=== PATIENT | female | born 1995 | race Caucasian/White ===

== ENCOUNTER 2019-01-06 15:01 | Outpatient (CLI) | payer BC, MEDICAID ==
[2019-01-06 15:48] LABS: APPEARANCE,URINE CLEAR; BILIRUBIN,URINE NEGATIVE (NEGATIVE); COLOR,URINE STRAW; GLUCOSE, URINE NEGATIVE (NEGATIVE); KETONES,URINE NEGATIVE (NEGATIVE); LEUKOCYTE ESTERASE,URINE SMALL (NEGATIVE); NITRITE,URINE NEGATIVE (NEGATIVE); PROTEIN,URINE NEGATIVE (NEGATIVE); URINE SPECIFIC GRAVITY 1.002; UROBILINOGEN,URINE NEGATIVE mg/dL (<2.0)
[2019-01-06 16:06] LABS: URINE AMPHETAMINES SCREEN NEGATIVE; URINE BARBITURATES SCREEN NEGATIVE; URINE BENZODIAZEPINES SCREEN NEGATIVE; URINE COCAINE SCREEN NEGATIVE; URINE MARIJUANA (THC) SCREEN NEGATIVE; URINE METHADONE SCREEN NEGATIVE; URINE PHENCYCLIDINE SCREEN NEGATIVE
[2019-01-06 16:22] LABS: HEMATOCRIT 35.4 % (36.0-47.0); HEMOGLOBIN 11.6 g/dL (12.0-15.5); MEAN CORPUSCULAR HEMOGLOBIN 28.3 pg (27.0-33.4); MEAN CORPUSCULAR HGB CONC 32.8 g/dL (32.0-36.0); MEAN CORPUSCULAR VOLUME 86 fl (80-97); PLATELET COUNT 157 10^3/uL (150-450); RED CELL DISTRIBUTION WIDTH 14.7 % (11.5-14.0); WHITE BLOOD COUNT 10.5 10^3/uL (4.0-10.5)
[2019-01-06 16:41] LABS: ABSOLUTE MONOCYTES # (MANUAL) 0.4 10^3/uL (0.1-1.4); BAND NEUTROPHILS % (MANUAL) 4 % (3-5); BASOPHILS % (MANUAL) 0 % (0-2); EOSINOPHILS % (MANUAL) 3 % (0-6); LYMPHOCYTES % (MANUAL) 19 % (13-45); MONOCYTES % (MANUAL) 4 % (3-13); SEGMENTED NEUTROPHILS % (MAN) 70 % (42-78); TOTAL CELLS COUNTED 100
[2019-01-06 16:43] LABS: PLATELET COMMENT ADEQUATE; TOXIC VACUOLATION PRESENT
== END 2019-01-06 17:33 | disposition home or self-care (01) ==
LOC: LC 15:01
PROVIDERS: ATTEND Obstetrics & Gynecology
PROC: 4A1HXCZ Monitoring of Products of Conception, Cardiac Rate, External Approach (ICD-10-PCS; principal; 2019-01-06)
DX: O26.893 Other specified pregnancy related conditions, third trimester (principal); R42 Dizziness and giddiness; Z3A.32 32 weeks gestation of pregnancy
CPT/HCPCS: 36415; 59025; 80307; 81001; 82962; 85025

== ENCOUNTER 2019-02-26 15:58 | Inpatient (IN) | payer BC, MEDICAID ==
[2019-02-26] MEDS ORDERED: OXYTOCIN/NORMAL SALINE 20 UNIT/1,000 ML RTUINJ ONE (16:41)
[2019-02-26] MEDS ORDERED: PENICILLIN G-K 5 MILLION UNIT VIAL ONE (16:41)
[2019-02-26] MEDS ORDERED: MISOPROSTOL 0.2 MG TABLET ONE (16:41)
[2019-02-26] MEDS ORDERED: LIDOCAINE 1% INJ-PF (10 MG/ML) 30 ML SDV ONE (16:41)
[2019-02-26 16:48] LABS: APPEARANCE,URINE SLIGHTLY-CLOUDY; BILIRUBIN,URINE NEGATIVE (NEGATIVE); COLOR,URINE YELLOW; GLUCOSE, URINE NEGATIVE (NEGATIVE); KETONES,URINE NEGATIVE (NEGATIVE); LEUKOCYTE ESTERASE,URINE SMALL (NEGATIVE); NITRITE,URINE NEGATIVE (NEGATIVE); PROTEIN,URINE NEGATIVE (NEGATIVE); URINE SPECIFIC GRAVITY 1.012; UROBILINOGEN,URINE NEGATIVE mg/dL (<2.0)
--- NOTE | 2019-02-26 16:57 | Admission Physical ---
Datetime Report Generated by CPN: 02/26/2019 16:56 CURRENT ADMISSION Chief Complaint: Uterine Contractions Indication for Induction: Not Applicable Admit Impression : Term, Intrauterine ; Active Labor Admit Plan: Admit to Unit; Initiate Labor Protocol ALLERGIES Medication Allergies: No Medication Allergies: No Known Allergies (01/06/2019) Latex: No Latex Allergies Food Allergies: no Environmental Allergies: no OBSTETRICAL HISTORY EDC: 03/03/2019 00:00 : 2 Para: 1 Term: 1 : 0 SAB: 0 IAB: 0 Ectopic: 0 Livin Cesareans: 0 VBACs: 0 Multiple Births: 0 SEE RECORDS Alcohol: No Marijuana : No Cocaine: No Other Illicit Drugs: No Cigarettes: Never Smoker. 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
[2019-02-26 17:13] LABS: ABSOLUTE BASOPHILS # (AUTO) 0.1 10^3/uL (0.0-0.2); ABSOLUTE LYMPHOCYTES (AUTO) 1.7 10^3/uL (0.5-4.7); ABSOLUTE NEUT (AUTO) 8.4 10^3/uL (1.7-8.2); BASOPHILS % (AUTO) 0.6 % (0-2); EOSINOPHILS % (AUTO) 0.4 % (0-6); HEMOGLOBIN 13.4 g/dL (12.0-15.5); LYMPHOCYTES % (AUTO) 15.3 % (13-45); MEAN CORPUSCULAR HEMOGLOBIN 28.3 pg (27.0-33.4); MEAN CORPUSCULAR HGB CONC 32.8 g/dL (32.0-36.0); MEAN CORPUSCULAR VOLUME 87 fl (80-97); MONOCYTES % (AUTO) 8.6 % (3-13); PLATELET COUNT 171 10^3/uL (150-450); RED BLOOD COUNT 4.74 10^6/uL (3.72-5.28); RED CELL DISTRIBUTION WIDTH 15.6 % (11.5-14.0); SEGMENTED NEUTROPHILS % (AUTO) 75.1 % (42-78); TOTAL CELLS COUNTED % (AUTO) 100 %; WHITE BLOOD COUNT 11.1 10^3/uL (4.0-10.5)
[2019-02-26] MEDS ORDERED: FENTANYL/BUPIVACAINE/NS/PF 0 MCG/0 ML RTUINJ EPI ONE (17:39)
[2019-02-26] MEDS ORDERED: EPHEDRINE SULFATE INJ 50 MG/1 ML AMPULE ONE (17:39)
[2019-02-26] MEDS ORDERED: BUPIVACAINE HCL 0.25 % INJ/PF (2.5 MG/1 ML) 30 ML VIAL ONE (17:39)
[2019-02-26 17:40] LABS: URINE AMPHETAMINES SCREEN NEGATIVE; URINE BARBITURATES SCREEN NEGATIVE; URINE BENZODIAZEPINES SCREEN NEGATIVE; URINE COCAINE SCREEN NEGATIVE; URINE MARIJUANA (THC) SCREEN NEGATIVE; URINE METHADONE SCREEN NEGATIVE; URINE PHENCYCLIDINE SCREEN NEGATIVE
[2019-02-26] MEDS ORDERED: DIPHENHYDRAMINE HCL 25 MG CAPSULE PO PRN (18:26)
[2019-02-26] MEDS ORDERED: DIPH/PERTUSS(ACELL)/TETANUS VAC/PF 0.5 ML SYR (>=10YO) IM PRN (18:26)
[2019-02-26] MEDS ORDERED: ZOLPIDEM TARTRATE 5 MG TABLET PO PRN (18:26)
[2019-02-26] MEDS ORDERED: ACETAMINOPHEN 650 MG SUPP.RECT PR PRN (18:26)
[2019-02-26] MEDS ORDERED: PROMETHAZINE HCL 25 MG TABLET PO PRN (18:26)
[2019-02-26] MEDS ORDERED: MAGNESIUM HYDROXIDE SUSP 30 ML UDCUP PO PRN (18:26)
[2019-02-26] MEDS ORDERED: PROMETHAZINE HCL 25 MG SUPP.RECT PR PRN (18:26)
[2019-02-26] MEDS ORDERED: BENZOCAINE/MENTHOL AEROSOL SPRAY 56 ML TOP PRN (18:26)
[2019-02-26] MEDS ORDERED: GLYCERIN/WITCH HAZEL LEAF 1 EACH MED..WIPE TP PRN (18:26)
[2019-02-26] MEDS ORDERED: MEASLES,MUMPS&RUBELLA VACC/PF 0.5 ML VIAL SUBCUT PRN (18:26)
[2019-02-26] MEDS ORDERED: PSEUDOEPHEDRINE HCL 30 MG TABLET PO PRN (18:26)
[2019-02-26] MEDS ORDERED: OXYTOCIN/NORMAL SALINE 20 UNIT/1,000 ML RTUINJ IV PRN (18:26)
[2019-02-26] MEDS ORDERED: ACETAMINOPHEN WITH CODEINE #3 TABLET PO PRN (18:26)
[2019-02-26] MEDS ORDERED: PROMETHAZINE HCL INJ 25 MG/1 ML VIAL IV PRN (18:26)
[2019-02-26] MEDS ORDERED: DIBUCAINE 1% OINTMENT 56 GM TP PRN (18:26)
[2019-02-26] MEDS ORDERED: NA PHOS,M-B/NA PHOS,DI-BA (ADULT) 133 ML ENEMA PR PRN (18:26)
[2019-02-26] MEDS ORDERED: IBUPROFEN 800 MG TABLET ONE (19:28)
[2019-02-26] MEDS: FAMOTIDINE 20 MG TABLET PO SCH (22:15)
[2019-02-27] MEDS: IBUPROFEN 800 MG TABLET PO SCH ×4 (00:10→21:52)
[2019-02-27 06:47] LABS: HEMATOCRIT 34.8 % (36.0-47.0); HEMOGLOBIN 11.5 g/dL (12.0-15.5); MEAN CORPUSCULAR HEMOGLOBIN 28.8 pg (27.0-33.4); MEAN CORPUSCULAR VOLUME 87 fl (80-97); PLATELET COUNT 147 10^3/uL (150-450); RED CELL DISTRIBUTION WIDTH 15.5 % (11.5-14.0); WHITE BLOOD COUNT 14.6 10^3/uL (4.0-10.5)
[2019-02-27] MEDS: PRENATAL VITAMIN W DHA CAPSULE PO SCH (09:05)
[2019-02-27] MEDS: SENNOSIDES/DOCUSATE 8.6-50 MG 1 EACH TABLET PO SCH (09:05)
[2019-02-27] MEDS: FAMOTIDINE 20 MG TABLET PO SCH ×2 (09:05→21:52)
[2019-02-27] MEDS: FERROUS SULFATE 325 MG TABLET PO SCH ×2 (09:06→17:11)
[2019-02-27] MEDS: DOCUSATE SODIUM 100 MG CAPSULE PO SCH ×2 (09:06→17:11)
--- NOTE | 2019-02-27 09:58 | PDOC PROGRESS REPORT ---
Subjective-OB Progress Note for:: 02/27/19 Subjective: Doing well, no c/o, bottle feeding, ambulating Physical Exam (OB) Vital Signs: Temp Pulse Resp BP Pulse Ox 98.0 F 102 H 18 107/69 99 02/27/19 07:15 02/27/19 07:15 02/26/19 20:55 02/27/19 07:15 02/27/19 07:15 Intake & Output 02/26/19 02/27/19 02/28/19 06:59 06:59 06:59 Weight 93.8 kg - PIH/Pre-Eclampsia DTR's: 1 + Clonus: Negative Headache: Absent Epigastric Pain: No Visual Changes: No - Lochia Lochia Amount: Scant < 10 ml Lochia Color: Rubra/Red - Abdomen Description: Soft, Round Hernia Present: No Fundal Description: Firm, Midline Fundal Height: u/u - u/2 Objective-Diagnostic Laboratory: 02/27/19 06:30 02/26/19 02/26/19 02/26/19 16:05 17:00 17:00 WBC 11.1 H RBC 4.74 Hgb 13.4 Hct 41.0 MCV 87 MCH 28.3 MCHC 32.8 RDW 15.6 H Plt Count 171 Seg Neutrophils % 75.1 Urine Color YELLOW Urine Appearance SLIGHTLY-CLOUDY Urine pH 8.0 Ur Specific [place] 1.012 Urine Protein NEGATIVE Urine Glucose (UA) NEGATIVE Urine Ketones NEGATIVE Urine Blood NEGATIVE Urine Nitrite NEGATIVE Ur Leukocyte Esterase SMALL H Blood Type O POSITIVE Antibody Screen NEGATIVE 02/27/19 06:30 WBC 14.6 H RBC 4.00 Hgb 11.5 L Hct 34.8 L MCV 87 MCH 28.8 MCHC 33.0 RDW 15.5 H Plt Count 147 L Seg Neutrophils % Urine Color Urine Appearance Urine pH Ur Specific [place] Urine Protein Urine Glucose (UA) Urine Ketones Urine Blood Urine Nitrite Ur Leukocyte Esterase Blood Type Antibody Screen Assessment and Plan(PN) - Assessment and Plan (1) Normal vaginal delivery Is this a current diagnosis for this admission?: Yes - Time Spent with Patient Time with patient: Less than 15 minutes Medications reviewed and adjusted accordingly: Yes - Disposition Anticipated Discharge: Home Within: within 24 hours
[2019-02-28] MEDS: IBUPROFEN 800 MG TABLET PO SCH ×2 (06:15→13:55)
--- NOTE | 2019-02-28 08:43 | PDOC PROGRESS REPORT ---
Subjective-OB Progress Note for:: 02/28/19 Subjective: Doing well, no c/o, ready to go home, bottle feeding, scant bleeding, ambulating Physical Exam (OB) Vital Signs: Temp Pulse Resp BP Pulse Ox 98.1 F 98 17 108/65 96 02/28/19 07:58 02/28/19 07:58 02/28/19 07:58 02/27/19 19:30 02/28/19 07:58 Intake & Output 02/27/19 02/28/19 03/01/19 06:59 06:59 06:59 Weight 93.8 kg - PIH/Pre-Eclampsia DTR's: 1 + Clonus: Negative Headache: Absent Epigastric Pain: No Visual Changes: No - Lochia Lochia Amount: Small 10-25 ml Lochia Color: Rubra/Red - Abdomen Description: Soft Hernia Present: No Fundal Description: Firm, Midline Fundal Height: u/u - u/2 Objective-Diagnostic Laboratory: 02/27/19 06:30 Assessment and Plan(PN) - Assessment and Plan (1) Normal vaginal delivery Is this a current diagnosis for this admission?: Yes - Time Spent with Patient Time with patient: Less than 15 minutes Medications reviewed and adjusted accordingly: Yes - Disposition Anticipated Discharge: Home Within: within 24 hours
[2019-02-28 08:44] VITALS: BP 115/60
--- NOTE | 2019-02-28 08:47 | PDOC DISCHARGE SUMMARY ---
Impression - Admit/DC Date/PCP Admission Date/Primary Care Provider: 02/26/19 16:41 CHELSEA BERRIOS MD Discharge Date: 02/28/19 - Discharge Diagnosis (1) Normal vaginal delivery Is this a current diagnosis for this admission?: Yes - Additional Information Resuscitation Status: Full Code Discharge Diet: As Tolerated, Regular Discharge Activity: Activity As Tolerated, Pelvic Rest Referrals: CHELSEA BERRIOS MD [Primary Care Provider] - (RTC 4 weeks) Home Medications: [id number]/Iron Fum/Folic/Docusate [ 19 Tablet] 1 each PO DAILY 01/06/19 HPI Gestational Age: 39.2 Reason(s) for Admission: Onset of Labor, Group B Strep Positive Procedures: Ultrasound Intrapartum Procedure(s): Spontaneous Vaginal Delivery - girl, wt 6-15, 11/14 Hospital Course Hospital Course: routine Results Laboratory Results: WBC 14.6 10^3/uL (4.0-10.5) H 02/27/19 06:30 RBC 4.00 10^6/uL (3.72-5.28) 02/27/19 06:30 Hgb 11.5 g/dL (12.0-15.5) L 02/27/19 06:30 Hct 34.8 % (36.0-47.0) L 02/27/19 06:30 MCV 87 fl (80-97) 02/27/19 06:30 MCH 28.8 pg (27.0-33.4) 02/27/19 06:30 MCHC 33.0 g/dL (32.0-36.0) 02/27/19 06:30 RDW 15.5 % (11.5-14.0) H 02/27/19 06:30 Plt Count 147 10^3/uL (150-450) L 02/27/19 06:30 Lymph % (Auto) 15.3 % (13-45) 02/26/19 17:00 [place] % (Auto) 8.6 % (3-13) 02/26/19 17:00 Eos % (Auto) 0.4 % (0-6) 02/26/19 17:00 Baso % (Auto) 0.6 % (0-2) 02/26/19 17:00 Absolute Neuts (auto) 8.4 10^3/uL (1.7-8.2) H 02/26/19 17:00 Absolute Lymphs (auto) 1.7 10^3/uL (0.5-4.7) 02/26/19 17:00 Absolute Monos (auto) 1.0 10^3/uL (0.1-1.4) 02/26/19 17:00 Absolute Eos (auto) 0.0 10^3/uL (0.0-0.6) 02/26/19 17:00 Absolute Basos (auto) 0.1 10^3/uL (0.0-0.2) 02/26/19 17:00 Seg Neutrophils % 75.1 % (42-78) 02/26/19 17:00 Urine Color YELLOW 02/26/19 16:05 Urine Appearance SLIGHTLY-CLOUDY 02/26/19 16:05 Urine pH 8.0 (5.0-9.0) 02/26/19 16:05 Ur Specific [place] 1.012 02/26/19 16:05 Urine Protein NEGATIVE mg/dL (NEGATIVE) 02/26/19 16:05 Urine Glucose (UA) NEGATIVE mg/dL (NEGATIVE) 02/26/19 16:05 Urine Ketones NEGATIVE mg/dL (NEGATIVE) 02/26/19 16:05 Urine Blood NEGATIVE (NEGATIVE) 02/26/19 16:05 Urine Nitrite NEGATIVE (NEGATIVE) 02/26/19 16:05 Urine Bilirubin NEGATIVE (NEGATIVE) 02/26/19 16:05 Urine Urobilinogen NEGATIVE mg/dL (<2.0) 02/26/19 16:05 Ur Leukocyte Esterase SMALL (NEGATIVE) H 02/26/19 16:05 Urine Ascorbic Acid NEGATIVE (NEGATIVE) 02/26/19 16:05 Urine Opiates Screen NEGATIVE 02/26/19 16:05 Urine Methadone Screen NEGATIVE 02/26/19 16:05 Ur Barbiturates Screen NEGATIVE 02/26/19 16:05 Ur Phencyclidine Scrn NEGATIVE 02/26/19 16:05 Ur Amphetamines Screen NEGATIVE 02/26/19 16:05 U Benzodiazepines Scrn NEGATIVE 02/26/19 16:05 Urine Cocaine Screen NEGATIVE 02/26/19 16:05 U Marijuana (THC) Screen NEGATIVE 02/26/19 16:05 RPR NONREACTIVE (NONREACTIVE) 02/26/19 17:00 Blood Type O POSITIVE 02/26/19 17:00 Antibody Screen NEGATIVE 02/26/19 17:00 Plan Health Concerns: routine Plan of Treatment: home with baby with no complications Goals: routine, baby d/c with mom Time Spent: Less than 30 Minutes
[2019-02-28] MEDS: FAMOTIDINE 20 MG TABLET PO SCH (10:03)
[2019-02-28] MEDS: PRENATAL VITAMIN W DHA CAPSULE PO SCH (10:03)
[2019-02-28] MEDS: SENNOSIDES/DOCUSATE 8.6-50 MG 1 EACH TABLET PO SCH (10:03)
[2019-02-28] MEDS: DOCUSATE SODIUM 100 MG CAPSULE PO SCH ×2 (10:03→17:31)
[2019-02-28] MEDS: FERROUS SULFATE 325 MG TABLET PO SCH ×2 (10:03→17:31)
--- NOTE | 2019-03-03 13:03 | Delivery Summary ---
Del Sum A-C Datetime Report Generated by CPN: 03/03/2019 13:03 DELIVERY PERSONNEL DELIVERY PERSONNEL: [id number] Delivery Doctor:: Kevin Ceja MD Labor and Delivery Nurse:: Letitia Velez RNmanager configuration Nurse:: Kia lEaine RN Nursery Nurse:: Yessi Sheets RN Nursery Nurse:: Carleen Leon RN Data Warehouse Consultant/MANAGER COLLEGE: Dayana Eliane CNA II Data Warehouse Consultant/HUBER: Dayana Elaine CNA II Additional Personnel: : Sunita Dumont RNC MATERNAL INFORMATION Delivery Anesthesia: None Medications After Delivery: Pitocin Bolus-Please Comment Meds After Delivery Comment: Pitocin 20 units in 1000 ml nss open for bolus after delivery Estimated Blood Loss (ml): 200 Delivery QBL: 200 Maternal Complications: Precipitous Labor (<3hrs) LABOR SUMMARY EDC: 03/03/2019 00:00 No. Babies in Womb: 1 Attempted: No Labor Anesthesia: None LABOR INFORMATION Reason for Induction: Not Applicable Onset of Labor: 02/26/2019 15:30 Complete Dilatation: 02/26/2019 18:02 Oxytocin: N/A Group B Beta Strep: Positive Antibiotics # of Doses: 1 Antibiotics Time of Last Dose: 1651 Name of Antibiotic Given: Penicillin Steroids Given: None Reason Steroids Not Administered: Not Applicable MEMBRANES Membranes Rupture Method: Spontaneous Rupture of Membranes: 02/26/2019 18:02 Length of Rupture (hr): 0.25 Amniotic Fluid Color: Clear Amniotic Fluid Amount: Large Amniotic Fluid Odor: Normal STAGES OF LABOR Stage 1 hr: 2 Stage 1 min: 32 Stage 2 hr: 0 Stage 2 min: 15 Stage 3 hr: 0 Stage 3 min: 3 Total Time in Labor hr: 2 Total Time in Labor min: 50 VAGINAL DELIVERY Episiotomy: None Laceration #1: None Laceration Extension #1: N/A Laceration Repair: Not Applicable Sponge Count Correct: N/A Sharps Count Correct: N/A CSECTION DELIVERY Primary Indication: N/A Secondary Indication: N/A CSection Incidence: N/A Labor: N/A Elective: N/A CSection Incision: N/A BABY A INFORMATION Delivery Date/Time: 02/26/2019 18:17 Method of Delivery: Vaginal Method of Delivery: Vaginal Born in Route : No : N/A Forceps: N/A Vacuum Extraction: N/A Shoulder Dystocia : No PRESENTATION/POSITION BABY A Presentation: Cephalic Cephalic Presentation: Vertex Vertex Position: Right Occipital Anterior Breech Presentation: N/A PLACENTA INFORMATION BABY A Placenta Delivery Time : 02/26/2019 18:20 Placenta Method of Delivery: Spontaneous Placenta Method of Delivery: Spontaneous Placenta Status: Delivered Placenta Status: Delivered SCORES BABY A Heart Rate 1 min: >100 bpm Resp Effort 1 min: Good Cry Reflex Irritability 1 min: Cough or Sneeze or Pulls Away Muscle Tone 1 min: Active Motion Color 1 min: Blue/Pale Resuscitation Effort 1 min: Tactile Stimulation SCORE 1 MIN: 8 Heart Rate 5 min: >100 bpm Resp Effort 5 min: Good Cry Reflex Irritability 5 min: Cough or Sneeze or Pulls Away Muscle Tone 5 min: Active Motion Color 5 min: Body [place], Extremities Blue Resuscitation Effort 5 min: N/A SCORE 5 MIN: 9 Resuscitation Effort 10 min: N/A INFORMATION BABY A Gestational Age at Delivery: 39.2 Gestational Status: Full Term- 39- 40.6 Weeks Outcome : Liveborn Condition : Stable Sex: Female Sex: Female IDENTIFICATION BABY A Infant Verification Date/Time: 02/26/2019 19:18 ID Band Number: [id number] Mother's Name Verified: Yes RN Verifying Infant: K Austin, RN/J Rowell, RN WEIGHT/LENGTH BABY A Birthweight (gm): 3160 Infant Weight (lb): 6 Infant Weight (oz): 15 Length (in): 20.00 Length (cm): 50.80 CORD INFORMATION BABY A No. Cord Vessels: 3 Nuchal Cord : N/A Cord Blood Taken: Yes-For Eval (Mom's Blood Type - or O+) Suction: None Suction: None ASSESSMENT BABY A Complications: None Physical Findings at Delivery: Within Normal Limits Infant Respirations: Appears Normal Skin to Skin: Yes Skin to Skin: Yes Social Worker Assistant/ALS Called : No Infant Care By: K Crimm, RN Transferred To: Remains with Mother BABY B INFORMATION : N/A SIGNATURES Signature: with User ID: [email or web address] : I personally evaluated and examined the patient in conjunction with the MLP and agree with the assessment, treatment plan and disposition.
== END 2019-02-28 18:38 | disposition home or self-care (01) | DRG 807 ==
LOC: LC 15:58 → LR 16:41 → 2S 20:46
PROVIDERS: ADMIT Obstetrics & Gynecology Gynecology; ATTEND Obstetrics & Gynecology Gynecology
PROC: 10E0XZZ Delivery of Products of Conception, External Approach (ICD-10-PCS; principal; 2019-02-26)
DX: O62.3 Precipitate labor (principal); Z37.0 Single live birth; O99.820 Streptococcus B carrier state complicating pregnancy; Z3A.39 39 weeks gestation of pregnancy
CPT/HCPCS: 36415; 80307; 81005; 85025; 85027; 86592; 86850; 86900; 86901; 90707; J2540; J2590; J3010; J3490